=== PATIENT | male | born 1995 | race Caucasian/White ===

== ENCOUNTER 2021-11-09 11:35 | Emergency (ER) | payer MEDICAID, OTHER ==
[~2021-11-09] VITALS: Ht 172.7 cm; Wt 107.0 kg
[2021-11-09] MEDS ORDERED: TETANUS, DIPHTHERIA, PERTUSSIS VAC/PF 0.5ML (>10YR OLD) IM ONE (12:00)
[2021-11-09] MEDS ORDERED: HYDROCODONE/ACETAMINOPHEN 5/325MG TABLET PO ONE (12:00)
[2021-11-09] MEDS ORDERED: HYDR-4001 MT (14:36)
[2021-11-09 14:56] VITALS: BP 128/86
== END 2021-11-09 15:00 | disposition home or self-care (01) ==
LOC: ER 11:35
DX: S67.21XA Crushing injury of right hand, initial encounter (principal); S60.051A Contusion of right little finger without damage to nail, initial encounter; W22.8XXA Striking against or struck by other objects, initial encounter; Y93.89 Activity, other specified; Y92.89 Other specified places as the place of occurrence of the external cause; Y99.0 Civilian activity done for income or pay
CPT/HCPCS: 73130; 90471; 90715; 99283

== ENCOUNTER 2022-07-08 03:58 | Emergency (ER) | payer MEDICAID ==
[~2022-07-08] VITALS: Ht 175.3 cm; Wt 87.0 kg
[~2022-07-08 03:58] MED LIST: HYDR-4001 MT
[2022-07-08 04:03] VITALS: BP 133/81
== END 2022-07-08 05:50 | disposition home or self-care (01) ==
LOC: ER 03:58
DX: F10.129 Alcohol abuse with intoxication, unspecified (principal); Y90.0 Blood alcohol level of less than 20 mg/100 ml; Z88.0 Allergy status to penicillin; I10 Essential (primary) hypertension
CPT/HCPCS: 99283